=== PATIENT | male | born 1980 | race Caucasian/White ===

== ENCOUNTER 2025-01-08 08:12 | Outpatient (CLI) | payer BC, SELFPAY ==
--- NOTE | ~2025-01-08 | CT_ITS ---
Non-contrast CT scan of the Abdomen and Pelvis Clinical indication: Kidney stone Technique: 2.5 mm axial scans were obtained through the abdomen and pelvis without intravenous or or al contrast. Dose reduction technique was used on this scan by utilizing automated exposure control a nd iterative reconstruction technique. The dose-length product (DLP) was 418.44 mGy-cm. Findings: Images through the lung bases reveal no abnormalities. Small bilateral nonobstructing renal stones are present, right more numerous than left. Largest stone is in the right kidney measuring 5 mm. No ureteral stone or hydronephrosis on either side. The liver, spleen, pancreas, gallbladder, and adrenals appear normal. There is no aortic aneurysm. There is no evidence of bowel obstruction. Probable minimal mesenteric panniculitis. Images through the pelvis were performed. There is no evidence of ascites or lymphadenopathy. Urinary bladder unremarkable. No pelvic mass seen. No ascites. Impression: Bilateral nonobstructing nephrolithiasis, as above. Minimal mesenteric panniculitis. Reviewed, dictated and finalized at [facility]. Impression: Bilateral nonobstructing nephrolithiasis, as above. Minimal mesenteric panniculitis.
== END 2025-01-08 08:13 | disposition home or self-care (01) ==
LOC: MICIMG 08:13
PROVIDERS: PCP Urology; Visit Provider Urology
DX: N20.0 Calculus of kidney (principal)
CPT/HCPCS: 74176

== ENCOUNTER 2025-04-17 08:33 | Outpatient (CLI) | payer BC, SELFPAY ==
--- OUTSIDE RECORDS SUMMARY | 2025-04-17 08:36 | XMS_ITS | Encounter Summary ---
Author Organization [facility] Address [address] [place] [address] Care Team Providers Care Brass Finisher Name Role Phone Shruthi Nicholson DISABILITY BENEFITS SPECIALIST Primary Care Provider [phone] Encounter Details Date Type Department Care Team (Late st Contact Info) Description 10/13/[address] [facility] Family Medicine - [place] [address] [facility] [address] [place] [address] [facility] Provider results. Social History Tobacco Use Types Packs/Day Years Used Date Smoking Tobacco: Never Passive Smoke Exposure: Never Smokeless Tobacco: Never Alcohol Use Standard Drinks/Week Comments Yes 1.7 (1 standard drink = 0.6 oz p ure alcohol) occational PHQ-2 Answer Date Recorded Patient Health Questionnaire-2 Score 0 09/11/2024 Sex and Gender Information Value Date Recorded Sex Assigned at Male 11/25/2024 10:33 AM CDT Legal Sex Male 2:36 PM CDT Gender Identity Male 11/25/2024 10:38 AM CDT Sexual Orientation Straight 11/25/2024 10 :38 AM CDT documented as of this encounter Plan of Treatment Not on file documented as of this encounter Visit Diagnoses Not on filedocumented in this encounter Additional Health Concerns Assessment Noted Time PHQ-9 Depression Total Score: 0 07/19/20 11:02 AM CDT documented as of this encounter Care Teams Brass Finisher Relationship Specialty Start Date End Date Shruthi Nicholson NP [address] [place], [place] [id number] PCP - General NURSE PRACTITIONER 07/19/23 documented as of this encounter
--- OUTSIDE RECORDS SUMMARY | 2025-04-17 08:37 | XMS_ITS | Encounter Summary ---
Author Organization [facility] Address [address] [place] [address] Care Team Providers Care Rug Hooker Name Role Phone Shruthi Nicholson NP Primary Care Provider [phone] Encounter Details Date Type Department Care Team (Late st Contact Info) Description 02/19/2025 Nisticat Message Enc [facility] Family Medicine - [place] [address] [facility] [address] [place] [phone] Shruthi Nicholson, BELKIS [address] [place] [address] Vacation insomnia Social History Tobacco Use Types Packs/Day Years Used Date Smoking Tobacco: Never Passive Smoke Exposure: Never Smokeless Tobacco: Never Alcohol Use Standard Drinks/Week Comments Yes 1.7 (1 standard drink = 0.6 oz p ure alcohol) occational PHQ-2 Answer Date Recorded Patient Health Questionnaire-2 Score 0 11/25/2024 Sex and Gender Information Value Date Recorded Sex Assigned at Male 11/25/2024 10:33 AM CDT Legal Sex Male 2:36 PM CDT Gender Identity Male 11/25/2024 10:38 AM CDT Sexual Orientation Straight 11/25/2024 10 :38 AM CDT documented as of this encounter Progress Notes * Gita Hwang MD - 02/19/2025 2:45 PM CDT Has he tried melatonin? Anywhere from 1-10 mg? Other OTC options are unisom or tylenol PM. * Courtney Hernandez MA - 02/19/2025 1:11 PM CDT Should we recommend OTC medication for him? documented in this encounter Plan of Treatment Not on file documented as of this encounter Visit Diagnoses Not on filedocumented in this encounter Additional Health Concerns Assessment Noted Time PHQ-9 Depression Total Score: 0 07/19/20 11:02 AM CDT documented as of this encounter Care Teams Rug Hooker Relationship Specialty Start Date End Date Shruthi Nicholson NP [address] [place] [address] PCP - General NURSE PRACTITIONER 07/19/23 documented as of this encounter
--- OUTSIDE RECORDS SUMMARY | 2025-04-17 08:37 | XMS_ITS | Clinical Summary ---
Author Organization [facility] Address [address] [place] [address] Care Team Providers Care Student Teaching Coordinator Name Role Phone Shruthi Nicholson NP Primary Care Provider [phone] [phone] Allergies No known active allergies Medications loratadine (CLARITIN) 10 MG tablet Take 1 tablet (10 mg total) by mouth daily. Active fluticasone propionate (FLONASE) 50 MCG/ACT nasal spray 1 spray by Each Nostril route 2 (two) times daily. Active Active Problems Problem Noted Date Diagnosed Date Overweight (BMI 25.0-29.9) 07/19/2023 Seasonal allergies 07/19/2023 Encounters Date Type Department Care Team Description 02/19/[address] Message Enc [facility] Family Medicine - [place] [address] [address] Shruthi Nicholson, BELKIS Vacation insomnia from Last 3 Months Immunizations Immunization Administration Dates Next Due Fluzone (IIV3, Trivalent, 0.5 ML Prefilled Syrin ge) 09/11/2024 Tdap (Adacel) 09/11/2024 Family History Medical History Relation Comments Hypertension Father Diabetes type II Mother Relation Status Comments Father Alive Mother Alive Social History Tobacco Use Types Packs/Day Years Used Date Smoking Tobacco: Never Passive Smoke Exposure: Never Smokeless Tobacco: Never Tobacco Cessation:Counseling Given: No Alcohol Use Standard Drinks/Week Comments Yes 1.7 (1 standard drink = 0.6 oz p ure alcohol) occational PHQ-2 Answer Date Recorded Patient Health Questionnaire-2 Score 0 11/25/2024 Sex and Gender Information Value Date Recorded Sex Assigned at Male 11/25/2024 10:33 AM CDT Legal Sex Male 2:36 PM CDT Gender Identity Male 11/25/2024 10:38 AM CDT Sexual Orientation Straight 11/25/2024 10 :38 AM CDT Last Filed Vital Signs Vital Sign Reading Time Taken Comments Blood Pressure 128/80 11/25/2024 10:38 AM CDT Pulse 105 11/25/2024 10:38 AM CDT Temperature 36.6 C (97.9 F) 11/25/2024 10:38 AM CDT Respiratory Rate 18 11/25/2024 10:38 AM CDT Oxygen Saturation 97% 11/25/2024 10:38 AM CDT Inhaled Oxygen Concentration - - Weight 93.9 kg (207 lb) 11/25/2024 10:38 AM CDT Height 182.9 cm (6') 11/25/2024 10:38 AM CDT Body Mass Index 28.07 11/25/2024 10:38 AM CDT Plan of Treatment Health Maintenance Due Date Last Done Comments Hepatitis B Vaccines (1 of 3 - 19+ 3-dose series) 1998 HPV Vaccines (1 - 3-dose SCD M series) 2006 COVID-19 Vaccine (2023-2 5 season) 2024 Annual Physical 09/11/2025 09/11/2024, 07/19/2023 Colorectal Cancer Screening FIT-DNA (3 Years) 09/24/2027 09/24/2024, 09/24/2024 DTaP, Tdap and Td Vaccines ( 2 - Td or Tdap) 09/11/2034 09/11/2024 Hepatitis C Completed 07/26/2023 PHQ-2 (Physician [place]) Completed 11/25/2024 Meningococcal B Vaccine Aged Out No l onger eligible based on patient's age to complete this topic Meningococcal Vaccine Aged Out No jackie dwight eligible based on patient's age to complete this topic Pneumococcal Vaccine: Pediatrics (0 to 5 Years) and At-Risk Patients (6 to 49 Years) Aged Out No longer eligible b ased on patient's age to complete this topic RSV Immunizations Under 20 Months Aged Out No longer eligible b ased on patient's age to complete this topic Procedures Procedure Name Priority Date/Time Associated Diagnosis Comments COLOGUARD (EXACT SCIENCE) Routine 09/24/2024 5:45 AM MIXER OPERATOR Screening for colon cancer HEPATITIS C ANTIBODY Routine 07/26/2023 9:30 AM MIXER OPERATOR Need for hepatitis C screening test from Last 3 Months or Most Recently Relevant to Health Maintenance Results * COLOGUARD (EXACT SCIENCE) (09/24/2024 5:45 AM MIXER OPERATOR) COLOGUARD RESULT Negative Negative [facility] [employer] (CLIA #:[id number]) Comment: NEGATIVE TEST RESULT. A negative Cologuard result indicates a low likelihood that a colorectal cancer (CRC) or advanced adenoma (adenomatous polyps with more advanced pre-malignant features) is present. The chance that a person with a negative Cologuard test has a colorectal cancer is less than 1 in 1500 (negative predictive value >99.9%) or has an advanced adenoma is less than 5.3% (negative predictive value 94.7%). These data are based on a prospective cross-sectional study of 10,000 individuals at average risk for colorectal cancer who were screened with both Cologuard and colonoscopy. (Mark Gamboa. et al, N Engl J Med 2014;370(14):5007-3308) The normal value (reference range) for this assay is negative. COLOGUARD RE-SCREENING RECOMMENDATION: Periodic colorectal cancer screening is an important part of preventive healthcare for asymptomatic individuals at average risk for colorectal cancer. Following a negative Cologuard result, the [place] [employer] and U.S. Multi-Society Task Force screening guidelines recommend a Cologuard re-screening interval of 3 years. References: [place] [employer] Guideline for Colorectal Cancer Screening: https://www.cancer.org/cancer/ijgul-opzbts-bmidtr/yrhbiogym-kvpijzsgr-jtxgeej/ac s-rec ommendations.html.; Rod AMBROSIO, Abundio OJEDA, Fco ArellanoK, Colorectal Cancer Screening: Recommendations for Physicians and Patients from the U.S. Multi-Society Task Force on Colorectal Cancer Screening , Am J Gastroenterology 2017; 112:6071-4651. TEST DESCRIPTION: Composite algorithmic analysis of stool DNA-biomarkers with hemoglobin immunoassay. Quantitative values of individual biomarkers are not reportable and are not associated with individual biomarker result reference ranges. Cologuard is intended for colorectal cancer screening of adults of either sex, 45 years or older, who are at average-risk for colorectal cancer (CRC). Cologuard has been approved for use by the U.S. FDA. The performance of Cologuard was established in a cross sectional study of average-risk adults aged 50-84. Cologuard performance in patients ages 45 to 49 years was estimated by sub-group analysis of near-age groups. Colonoscopies performed for a positive result may find as the most clinically significant lesion: colorectal cancer [4.0%], advanced adenoma (including sessile serrated polyps greater than or equal to 1cm diameter) [20%] or non- advanced adenoma [31%]; or no colorectal neoplasia [45%]. These estimates are derived from a prospective cross-sectional screening study of 10,000 individuals at average risk for colorectal cancer who were screened with both Cologuard and colonoscopy. (Mark Smith et al, N Engl J Med 2014;370(14):1962-1198.) Cologuard may produce a false negative or false positive result (no colorectal cancer or precancerous polyp present at colonoscopy follow up). A negative Cologuard test result does not guarantee the absence of CRC or advanced adenoma (pre-cancer). The current Cologuard screening interval is every 3 years. ([place] [employer] and U.S. Multi-Society Task Force). Cologuard performance data in a 10,000 patient pivotal study using colonoscopy as the reference method can be accessed at the following location: www.[employer]/results. Additional description of the Cologuard test process, warnings and precautions can be found at www.[employer].com. STOOL STOOL SPECIMEN / Unknown 09/24/2024 5:45 AM MIXER OPERATOR 09/25/2024 8:10 AM MIXER OPERATOR us Shruthi Nicholson NP BODY FLUIDS AND STOOLS OR DERABLES Final Result [employer] ([facility]) [address] [place] [address], [employer] (CLIA #:[id number]) [address] [place] [address] * HEPATITIS C ANTIBODY (07/26/2023 9:30 AM MIXER OPERATOR) HEPATITIS C AB NON-REACTI VE NON-REACT KAILEE 07/26/2023 7:[address] [facility] Comment: ANTIBODIES TO HCV NOT DETECTED. DOES NOT EXCLUDE THE POSSIBILITY OF EXPOSURE TO HCV. 07/26/2023 9:30 AM MIXER OPERATOR us Shruthi Nicholson NP LABORATORY Final Res ult [facility] [address] [place] [address], [id number] from Last 3 Months or Most Recently Relevant to Health Maintenance Insurance [facility] Care Teams Student Teaching Coordinator Relationship Specialty Start Date End Date Shruthi Nicholson NP [address] [place] [address] PCP - General NURSE PRACTITIONER 07/19/23
--- OUTSIDE RECORDS SUMMARY | 2025-04-17 08:37 | XMS_ITS | Encounter Summary ---
Author Organization [facility] Address [address] [place] [address] Care Team Providers Care Marketing Administrative Assistant Name Role Phone Shruthi Nicholson NP Primary Care Provider [phone] Encounter Details Date Type Department Care Team (Late st Contact Info) Description 08/07/2024 [employer] Message Enc [facility] Family Medicine - [place] [address] [facility] [address] [place] [phone] Shruthi Nicholson NP [address] [place] [address] Panel? Social History Tobacco Use Types Packs/Day Years Used Date Smoking Tobacco: Never Passive Smoke Exposure: Never Smokeless Tobacco: Never Alcohol Use Standard Drinks/Week Comments Yes 1.7 (1 standard drink = 0.6 oz p ure alcohol) occational PHQ-2 Answer Date Recorded Patient Health Questionnaire-2 Score 0 07/19/2023 Sex and Gender Information Value Date Recorded [...] Time PHQ-9 Depression Total Score: 0 07/19/20 23 11:02 AM CDT documented as of this encounter Care Teams Marketing Administrative Assistant Relationship Specialty Start Date End Date Shruthi Nicholson NP [address] [place] [address] PCP - General NURSE PRACTITIONER 07/19/23 documented as of this encounter
[2025-04-17 09:40] LABS: Albumin Level 4.4 g/dL (3.5-5.1); Anion Gap 8 mmol/L (4-12); Blood Urea Nitrogen 23 mg/dL (9-20); Calcium 9.4 mg/dL (8.4-10.2); Carbon Dioxide 24 mmol/L (22-30); Chloride 106 mmol/L (98-107); Estimated Glomerular Filt Rate > 60; Glucose 131 mg/dL (65-110); Potassium 4.1 mmol/L (3.4-5.0); Sodium 138 mmol/L (137-145); Uric Acid 5.3 mg/dL (3.5-8.5)
[2025-04-17 09:51] LABS: Parathyroid Intact 27.1 pg/mL (14.5-75.2)
[2025-04-17 10:08] LABS: Add Urine Microscopic? NO; Appearance Urine Clear (Clear); Glucose Urine UA Negative (Negative); Leukocyte Esterase Ur Negative LEU/UL (Negative); Nitrate Urine Negative (Negative); Specific Grav Ur 1.028 (1.001-1.035)
== END 2025-04-17 08:34 | disposition home or self-care (01) ==
PROVIDERS: PCP Nurse Practitioner; Visit Provider Internal Medicine Nephrology
DX: N20.0 Calculus of kidney (principal)
CPT/HCPCS: 36415; 80069; 81003; 83970; 84550